=== PATIENT | male | born 1990 ===

== ENCOUNTER 2017-09-16 17:17 | Emergency (ER) | payer SELFPAY ==
[2017-09-16 18:07] VITALS: BP 122/54
--- NOTE | 2017-09-16 20:14 | XRay Report ---
FINAL REPORT PROCEDURE: XR HAND 3+V RT TECHNIQUE: RIGHT hand radiographs, AP, lateral, and oblique views. CPT 59970-BR HISTORY: Rt hand pain COMPARISON: No prior studies are available for comparison. FINDINGS: Fracture (s) and/or Dislocation(s): None Alignment: Normal . Joint space(s): Normal . Soft tissues: Normal . Bone mineralization: Normal . Foreign bodies: None . IMPRESSION: Unremarkable study
--- NOTE | 2017-09-16 20:47 | Emergency Department Report ---
HPI - General Chief Complaint: Extremity Injury, Upper Time Seen by Provider: 09/16/17 20:19 - HPI HPI: 27-year-old male presents today complaining of a cut to his right thumb post punching a shower door glass yesterday. He admits to full, range of motion. Patient states that he has 1 out of 10 pain at rest with the wound covered. But when the wound is exposed his pain as a 4 out of 10. Denies active bleeding or drainage. Denies numbness, weakness, paresthesias. Denies fever, chills, nausea, vomiting, chest pain, shortness of breath, abdominal pain. ED Past Medical Hx - Past Medical History Previous Medical History?: Yes Hx Psychiatric Treatment: Yes (ADHD) - Surgical History Past Surgical History?: No - Social History Smoking Status: Current Every Day Smoker Substance Use Type: Alcohol, Marijuana - Medications Home Medications: Home Medications Medication Instructions Recorded Confirmed Last Taken Type Cephalexin [Keflex] 500 mg PO Q12HR #14 cap 09/16/17 Unknown Rx Neomy/Baci/Polymyx Oint [Triple 1 applic TP TID #1 tube 09/16/17 Unknown Rx Antibiotic] ED Review of Systems ROS: Stated complaint: RIGHT HAND LACERATION Other details as noted in HPI Constitutional: denies: chills, fever, malaise Eyes: denies: eye pain ENT: denies: ear pain, throat pain, congestion Respiratory: denies: cough, shortness of breath, wheezing Cardiovascular: denies: chest pain, palpitations Endocrine: no symptoms reported Gastrointestinal: denies: abdominal pain, nausea, vomiting Skin: denies: rash, pruritus Neurological: denies: headache, weakness, numbness, paresthesias Psychiatric: denies: anxiety, depression Physical Exam - Physical Exam Vital Signs: Vital Signs 09/16/17 18:04 Temperature 97.9 F Pulse Rate 55 L Respiratory 18 Rate Blood Pressure 122/54 O2 Sat by Pulse 100 Oximetry Physical Exam: GENERAL: The patient is well-developed and well-nourished. Patient is in NAD. HEAD: Normocephalic. Atraumatic. EYES: Extraocular motions are intact, PERRL. EARS: External auditory canals and tympanic membranes clear; hearing grossly intact. NOSE: Normal nasal mucosa with no nasal discharge. THROAT: No erythema, swelling or exudates. Teeth and gingiva in good general condition. NECK: Supple, nontender, without lymphadenopathy. No meningitic signs are noted. CHEST/LUNGS: Clear to auscultation throughout. HEART/CARDIOVASCULAR: Regular rate and rhythm. No murmurs, rubs or gallops. ABDOMEN: Abdomen is soft, nontender. Bowel sounds normoactive. No guarding or rebound tenderness. EXTREMITIES: Full right thumb range of motion. 1.5 cm linear superficial laceration noted over the proximal phalanx, no active bleeding. Normal sensation. Peripheral pulses intact. Capillary refill less than 2 seconds. Otherwise musculoskeletal exam unremarkable. NEURO: Alert and oriented x 3. Normal gait. ED Course Vital Signs 09/16/17 18:04 Temperature 97.9 F Pulse Rate 55 L Respiratory 18 Rate Blood Pressure 122/54 O2 Sat by Pulse 100 Oximetry ED Medical Decision Making - Lab Data Vital Signs 09/16/17 18:04 Temperature 97.9 F Pulse Rate 55 L Respiratory 18 Rate Blood Pressure 122/54 O2 Sat by Pulse 100 Oximetry - Radiology Data Radiology results: report reviewed PROCEDURE: XR HAND 3+V RT TECHNIQUE: RIGHT hand radiographs, AP, lateral, and oblique views. CPT 36917-EA HISTORY: Rt hand pain COMPARISON: No prior studies are available for comparison. FINDINGS: Fracture (s) and/or Dislocation(s): None Alignment: Normal . Joint space(s): Normal . Soft tissues: Normal . Bone mineralization: Normal . Foreign bodies: None . IMPRESSION: Unremarkable study - Medical Decision Making 27-year-old male presents today with a laceration to his right thumb that occurred yesterday. His wound was copiously irrigated and dressed. Patient tolerated the procedure well. Wound care instructions provided. Patient is in no acute distress at this time. He will be discharged home and is encouraged to follow up with a primary care provider. He will be sent home on Keflex and triple antibiotic ointment and is encouraged to return to the emergency room for any worsening symptoms. Critical care attestation.: If time is entered above; I have spent that time in minutes in the direct care of this critically ill patient, excluding procedure time. ED Disposition Clinical Impression: Laceration of thumb Qualifiers: Encounter type: initial encounter Damage to nail status: without damage Foreign body presence: without foreign body Laterality: right Qualified Code(s) : S61.011A - Laceration without foreign body of right thumb without damage to nail, initial encounter Disposition: DC-01 TO HOME OR SELFCARE Is pt being admited?: No Does the pt Need Aspirin: No Condition: Stable Instructions: Finger Laceration (ED) Additional Instructions: Patient may take Tylenol or Motrin for pain control. Take antibiotics as prescribed. Follow up with primary care provider in 3-5 days for reevaluation. Return to the emergency department if symptoms worsen. Prescriptions: Cephalexin [Keflex] 500 mg PO Q12HR #14 cap Neomy/Baci/Polymyx Oint [Triple Antibiotic] 1 applic TP TID #1 tube Referrals: PRIMARY CAREMD [Primary Care Provider] - 3-5 Days [facility] [Outside] - 3-5 Days EMILEE KRAFT MD [Staff Physician] - 3-5 Days Forms: Work/School Release Form(ED) Time of Disposition: 20:54
== END 2017-09-16 21:06 | disposition home or self-care (01) ==
LOC: ED 17:17
DX: S61.011A Laceration without foreign body of right thumb without damage to nail, initial encounter (principal); F90.9 Attention-deficit hyperactivity disorder, unspecified type; F17.200 Nicotine dependence, unspecified, uncomplicated; W23.0XXA Caught, crushed, jammed, or pinched between moving objects, initial encounter; Y93.89 Activity, other specified; Y92.89 Other specified places as the place of occurrence of the external cause; Y99.8 Other external cause status
CPT/HCPCS: 99282

== ENCOUNTER 2020-03-08 04:52 | Emergency (ER) | payer SELFPAY ==
[2020-03-08 05:16] VITALS: BP 117/76
--- NOTE | 2020-03-08 05:29 | Emergency Department Report ---
Chief Complaint: Dental/Oral Stated Complaint: TOOTH PAIN Time Seen by Provider: 03/08/20 05:16 - HPI History of Present Illness: 29-year-old -[place] male presents to the emergency room complaining of tooth pain that is been going on for a couple of months. Patient thinks he has an infection. Patient reports he been taking [id number] Aleve ibuprofen Orajel. Denies any fever no chills. - Exam Vital Signs: Vital Signs 03/08/20 05:00 Temperature 98.0 F Pulse Rate 55 L Respiratory 18 Rate Blood Pressure 117/76 O2 Sat by Pulse 97 Oximetry Physical Exam: Alert and oriented x3 no acute distress Tooth #17 has a large hole there is no gingiva enlargement no abscess no erythematous no drainage no swelling. Patient is amatory without difficulties. MSE screening note: Focused history and physical exam performed. Due to findings the following was ordered: 29-year-old -[place] male presents to the emergency room complaining of tooth pain that is been going on for a couple of months. Patient thinks he has an infection. Patient reports he been taking [id number] Aleve ibuprofen Orajel. Denies any fever no chills. Recommend patient to follow-up at the dentist handout will be given to patient. ED Disposition for MSE Clinical Impression: Tooth pain Disposition: Z-07 MED SCREENING EXAM-LEFT Is pt being admited?: No Does the pt Need Aspirin: No Condition: Stable Additional Instructions: Recommend to follow-up with a dentist as she do not have an abscess you have a hole in your tooth and most likely have an exposure of your nerve. Continue with [id number] pain medication and follow-up with a dentist in the morning. Referrals: PRIMARY CARE, [Primary Care Provider] - 3-5 Days [facility] [Outside] - 3-5 Days [facility] [Outside] - 3-5 Days [facility] [Outside] - 3-5 Days
== END 2020-03-08 05:36 | disposition left against medical advice (07) ==
LOC: ED 04:52
DX: K08.89 Other specified disorders of teeth and supporting structures (principal)
CPT/HCPCS: 99282

== ENCOUNTER 2022-03-31 17:49 | Emergency (ER) | payer SELFPAY ==
[2022-03-31 18:18] VITALS: BP 136/64
== END 2022-04-01 10:20 | disposition left against medical advice (07) ==
LOC: ED 17:49
DX: M25.511 Pain in right shoulder (principal); Z53.21 Procedure and treatment not carried out due to patient leaving prior to being seen by health care provider; V87.7XXA Person injured in collision between other specified motor vehicles (traffic), initial encounter; Y93.89 Activity, other specified; Y92.488 Other paved roadways as the place of occurrence of the external cause; Y99.8 Other external cause status